=== PATIENT | male | born 1985 | race Hispanic/Latino ===

== ENCOUNTER 2017-10-21 20:34 | Emergency (ER) | payer SELFPAY ==
[2017-10-21 20:58] VITALS: RESP 18; TEMP 98.2
[2017-10-21 21:19] LABS: HEMOGLOBIN 16.3 g/dL (14.0-18.0); MEAN CELL VOLUME 84.6 fl (80.0-105.0); MEAN CORPUSCULAR HGB CONC 36.6 g/dl (31.0-37.0); MEAN PLATELET VOLUME 9.2 fl (7.0-11.0); RBC 5.26 10^6/uL (3.5-6.1); RED CELL DISTRIBUTION WIDTH 13.1 % (11.5-14.5); WHITE BLOOD COUNT 18.1 10^3/ul (4.5-11.0)
[2017-10-21 21:29] LABS: ALB/GLOB RATIO 1.7 (1.1-1.8); ALBUMIN 4.6 g/dL (3.0-4.8); ALT/SGPT 29 U/L (7-56); AST/SGOT 22 U/L (17-59); BLOOD UREA NITROGEN 14 mg/dL (7-21); GFR AFRICAN-AMERICAN > 60; GFR NON-AFRICAN AMERICAN > 60
--- NOTE | 2017-10-21 21:47 | ED PDOC ---
Arrival/HPI - General Chief Complaint: Flu-like Symptoms Time Seen by Provider: 10/21/17 20:38 Historian: Patient - History of Present Illness Narrative History of Present Illness (Text): 10/21/17 21:43 A 32 year old male, with no significant past medical history, presents to the emergency department complaining of possible drug withdrawal. 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 He states that he transition taking the medication with snorting heroin. He states that he has not used heroin in a few days and feels that he is withdrawing. He complains of feeling anxious and jittering. The patient denies fevers, chills, headache, dizziness, chest pain, shortness of breath, dyspnea on exertion, cough, abdominal pain, nausea, vomiting, diarrhea, back pain, neck pain, urinary/bowel changes, or any other complaint. Time/Duration: Other (Few Days) Symptom Onset: Sudden Symptom Course: Unchanged Activities at Onset: Rest, Light Context: Home Past Medical History - Provider Review Nursing Documentation Reviewed: Yes - Infectious Disease Hx of Infectious Diseases: None - Psychiatric Hx Substance Use: Yes Family/Social History - Physician Review Nursing Documentation Reviewed: Yes Family/Social History: No Known Family HX Smoking Status: Heavy Smoker > 10 Cigarettes Daily Hx Alcohol Use: Yes Frequency of alcohol use: Socially Hx Substance Use: Yes Substance used: heroin Allergies/Home Meds Allergies/Adverse Reactions: Allergies No Known Allergies Allergy (Verified 10/21/17 20:45) Home Medications: Home Meds Medication Instructions Recorded Confirmed No Known Home Med 10/21/17 10/21/17 Review of Systems - Physician Review All systems were reviewed & negative as marked: Yes - Review of Systems Constitutional: absent: Fevers, Night Sweats Respiratory: absent: SOB, Cough Cardiovascular: absent: Chest Pain, ALVARADO Gastrointestinal: absent: Abdominal Pain, Stool Changes, Diarrhea, Nausea, Vomiting Genitourinary Male: absent: Urinary Output Changes Musculoskeletal: absent: Back Pain, Neck Pain Neurological: absent: Headache, Dizziness Psychiatric: Anxiety (Anxious and jittering) Physical Exam Vital Signs Reviewed: Yes Vital Signs Temp Pulse Resp BP Pulse Ox 10/21/17 23:05 80 18 122/79 100 10/21/17 20:55 98.2 F 89 18 121/74 99 Temperature: Afebrile Blood Pressure: Normal Pulse: Regular Respiratory Rate: Normal Appearance: Positive for: Well-Appearing, Non-Toxic, Comfortable Pain Distress: None Mental Status: Positive for: Alert and Oriented X 3, other (Anxious appearing) - Systems Exam Head: Present: Atraumatic, Normocephalic Pupils: Present: PERRL Extroacular Muscles: Present: EOMI Conjunctiva: Present: Normal Mouth: Present: Moist Mucous Membranes Neck: Present: Normal Range of Motion Respiratory/Chest: Present: Clear to Auscultation, Good Air Exchange. No: Respiratory Distress, Accessory Muscle Use Cardiovascular: Present: Regular Rate and Rhythm, Normal S1, S2. No: Murmurs Abdomen: No: Tenderness, Distention, Peritoneal Signs Back: Present: Normal Inspection Upper Extremity: Present: Normal Inspection. No: Cyanosis, Edema Lower Extremity: Present: Normal Inspection. No: Edema Neurological: Present: GCS=15, CN II-XII Intact, Speech Normal Skin: Present: Warm, Dry, Normal Color. No: Rashes Psychiatric: Present: Alert, Oriented x 3, Normal Insight, Normal Concentration , Anxious Medical Decision Making ED Course and Treatment: 10/21/17 21:49 Impression: A 32 year old male presents to the emergency department complaining of possible drug withdrawal. The patient states that he is experiencing anxiety and jittering Plan: -- EKG -- Labs -- Xanax -- Reassess and disposition Progress Notes: EKG: Ordered, reviewed, and independently interpreted the EKG. Rate : 80 BPM Rhythm : NSR Interpretation : Normal interval. Normal EKG. 10/21/17 22:38: Patient was evaluated by VENITA. 10/21/17 23:07: Patient has been seen by [facility]. PES associate java developer spoke to psychiatrist. Patient has been referred to outpatient drug detox programs. The patient is without any signs of active drug withdrawal at this time. - Lab Interpretations Lab Results: 10/21/17 21:09 10/21/17 21:09 Lab Results 10/21/17 21:37: Urine Opiates Screen Positive H, Urine Methadone Screen Negative , Ur Barbiturates Screen Negative, Ur Phencyclidine Scrn Negative, Ur Amphetamines Screen Negative, U Benzodiazepines Scrn Negative, U Oth Cocaine Metabols Negative, U Cannabinoids Screen Negative 10/21/17 21:09: WBC 18.1 H, RBC 5.26, Hgb 16.3, Hct 44.5, MCV 84.6, MCH 31.0, MCHC 36.6, RDW 13.1, Plt Count 313, MPV 9.2 10/21/17 21:09: Alcohol, Quantitative < 10 10/21/17 21:09: Sodium 140, Potassium 3.6, Chloride 104, Carbon Dioxide 24, Anion Gap 16, BUN 14, Creatinine 0.9, Est GFR ( Amer) > 60, Est GFR (Non- Af Amer) > 60, Random Glucose 100, Calcium 10.0, Total Bilirubin 0.6, AST 22, ALT 29, Alkaline Phosphatase 76, Total Protein 7.3, Albumin 4.6, Globulin 2.7, Albumin/Globulin Ratio 1.7 I have reviewed the lab results: Yes - EKG Interpretation Interpreted by ED Physician: Yes Type: 12 lead EKG - Medication Orders Current Medication Orders: Discontinued Medications Alprazolam (Xanax) 0.5 mg PO ONCE ONE Stop: 10/21/17 21:05 Last Admin: 10/21/17 21:15 Dose: 0.5 mg - Scribe Statement The provider has reviewed the documentation as recorded by the [place] Anderson Provider Scribe Attestation: All medical record entries made by the Vickyibyaima were at my direction and personally dictated by me. I have reviewed the chart and agree that the record accurately reflects my personal performance of the history, physical exam, medical decision making, and the department course for this patient. I have also personally directed, reviewed, and agree with the discharge instructions and disposition. Disposition/Present on Arrival - Present on Arrival Any Indicators Present on Arrival: No History of DVT/PE: No History of Uncontrolled Diabetes: No Urinary Catheter: No History of Decub. Ulcer: No History Surgical Site Infection Following: None - Disposition Have Diagnosis and Disposition been Completed?: Yes Diagnosis: Opiate abuse, episodic Disposition: HOME/ ROUTINE Disposition Time: 23:05 Patient Plan: Discharge Condition: GOOD Discharge Instructions (ExitCare): Drug Abuse and Drug Addiction (DC) Additional Instructions: Follow up out patient drug detox centers as instructed Referrals: PCP,NO [Primary Care Provider] - Follow up with primary Forms: [employer] ([place])
[2017-10-21 23:15] LABS: BARBITURATES, UR NEGATIVE (NEGATIVE); BENZODIAZEPINES, UR NEGATIVE (NEGATIVE); OPIATES, UR POSITIVE (NEGATIVE); PHENCYCLIDINE, UR NEGATIVE (NEGATIVE)
[2017-10-22 01:10] VITALS: BP 122/79; PULSE 80; O2SAT 100
--- NOTE | 2017-10-22 09:11 | CARD ---
APPROVED REPORT EKG Measurement Heart [id number] <Conclusion> Normal sinus rhythm Normal ECG
== END 2017-10-21 23:05 | disposition home or self-care (01) ==
LOC: ED 20:34
DX: F11.10 Opioid abuse, uncomplicated (principal); F17.210 Nicotine dependence, cigarettes, uncomplicated
CPT/HCPCS: 80053; 85027; 90791; 93005; 99283; G0480